=== PATIENT | male | born 1985 | race Hispanic/Latino ===

== ENCOUNTER 2023-08-02 11:38 | Emergency (ER) | payer MEDICAID, SELFPAY ==
[2023-08-02] MEDS ORDERED: Morphine 2 MG/ML VIAL ONE (13:34)
== END 2023-08-02 13:48 | disposition home or self-care (01) ==
LOC: BURERS 11:38
DX: S80.12XA Contusion of left lower leg, initial encounter (principal); W01.10XA Fall on same level from slipping, tripping and stumbling with subsequent striking against unspecified object, initial encounter
CPT/HCPCS: 96372; J2272